=== PATIENT | male | born 2000 | race Caucasian/White ===

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

== ENCOUNTER 2018-04-09 13:29 | Emergency (ER) | payer OTHER ==
[~2018-04-09] VITALS: Wt 135.9 kg
[~2018-04-09 13:29] MED LIST: ACET500C5 PO; AMOX1TAB10 PO; BACTDS PO; IBUP-1542 PO; MUPI22OI2 TOP; NPH10OT LEFT EAR; OFLO5DRO7 LEFT EAR
[2018-04-09 13:38] VITALS: BP 122/70; PULSE 78; RESP 18
[2018-04-09] MEDS ORDERED: IBUPROFEN 600 MG TAB PO ONE (15:00)
--- NOTE | 2018-04-09 15:02 | ERD ---
ER Documentation Chief Complaint Chief Complaint LEFT SHOULDER PAIN X 1 WEEK HPI 17-year-old male presents ED with posterior left shoulder pain times 1 week. Patient denies any fall or injury to account for pain. Patient states that he believes he hurt himself in his sleep. Patient admits to some painful range of motion with shoulder abduction. Denies decreased range of motion, tingling, numbness, lack sensation, fever, chills, shortness of breath, trouble breathing and all other symptoms ROS All systems reviewed and are negative except as per history of present illness. Medications Home Meds Active Scripts Ofloxacin Otic (Ofloxacin Otic) 5 Ml Drops, 5 DROP LEFT EAR BID for 7 Days, #1 BOTTLE Prov:HOLLIE BELLE PA-C 03/25/17 Amoxicillin/Potassium Clav (Amox-Clav 875-125 mg Tablet) 875-125 mg Tab, 1 TAB PO BID for 10 Days, #20 TAB Prov:HOLLIE BELLE PA-C 03/25/17 Acetaminophen* (Tylophen*) 500 Mg Capsule, 1 CAP PO Q6H PRN for PAIN AND OR ELEVATED TEMP, #30 CAP Prov:HOLLIE BELLE PA-C 03/25/17 Ibuprofen* (Motrin*) 600 Mg Tab, 600 MG PO Q6, #30 TAB Prov:HOLLIE BELLE PA-C 03/25/17 Mupirocin* (Bactroban*) 2% -22 Gram Oint...g., 1 APPLIC TOP BID for 7 Days, EA Prov:DENISE BARRIOS 01/14/16 Sulfamethoxazole-Trimethoprim* (Bactrim* DS) 800-160 Mg Tab, 1 TAB PO BID for 7 Days, TAB Prov:DENISE BARRIOS 01/14/16 Neomycin/Polymyxin/Hydrocort* (Cortisporin* Otic) 10 Ml Susp, 4 DROP LEFT EAR QID for 7 Days, EA Prov:VANESSA ORO PA-C 09/02/15 Allergies Allergies: Coded Allergies: No Known Allergy (Unverified , 09/02/15) PMhx/Soc Medical and Surgical Hx: pt denies Medical Hx, pt denies Surgical Hx History of Surgery: No Anesthesia Reaction: No Hx Neurological Disorder: No Hx Respiratory Disorders: No Hx Cardiac Disorders: No Hx Psychiatric Problems: No Hx Miscellaneous Medical Probl: No Hx Alcohol Use: No Hx Substance Use: No Hx Tobacco Use: No Smoking Status: Never smoker FmHx Family History: No diabetes Physical Exam Vitals Vital Signs Date Temp Pulse Resp B/P (MAP) Pulse Ox O2 O2 Flow FiO2 Time Delivery Rate 04/09/18 36.7 14:55 04/09/18 98.1 78 18 122/70 99 13:38 (87) Physical Exam Physical Exam Vitals signs: Reviewed by me. General: Well developed, well nourished, in no acute distress. Patient is awake and alert. Head: Normocephalic, atraumatic. Eyes: Normal conjunctiva, Pupils PERRLA, EOM intact grossly ENT: Pharynx is clear, Moist mucous membranes, external ears, nose and mouth normal Neck: Supple, no masses, lymphadenopathy or JVD Respiratory: Clear to auscultation bilaterally with no wheezing, rhonchi, rales, no distress Cardiovascular: RRR, no murmurs, rubs, or gallops MSK: No edema, no unilateral swelling, 5/5 strength Upper Extremity - left Skin: No laceration, or evidence of external trauma Compartments: Soft Motor: Full active range of motion shoulder/elbow/wrist/hand Sensation: Intact shoulder/pinky/middle finger/thumb web space Bones: Mild tenderness palpation along left posterior shoulder, nontender humerus/elbow/forearm/wrist/hand Snuffbox: Nontender Joints: No effusion Pulses/Perfusion: 2+ radial, Capillary refill < 2 seconds Back: No midline tenderness. No flank tenderness Psych: Normal mood Results 24 hrs Current Medications Medications Dose Sig/Abbey Start Time Status Last (Trade) Ordered Route PRN Stop Time Admin Dose Reason Admin Ibuprofen 600 mg ONCE ONCE 04/09/18 DC 04/09/18 (Motrin) PO 15:00 14:55 04/09/18 15:01 Procedures/MDM EKG, MONITORS, & DIAGNOSTIC IMAGING: X-rays reviewed ER COURSE: The patient was given ibuprofen The medication was well tolerated and the patient reports improvement in symptoms. The patient was stable throughout ED course. I kept the patient and/or family informed of laboratory and diagnostic imaging results throughout the emergency room course. The patient was promptly evaluated and a treatment plan was devised based on H&P and other data. This plan was discussed with the patient who agreed and had no further questions or concerns prior to discharge. MEDICAL DECISION MAKIN-year-old male presents ED with atraumatic left shoulder pain times 1 week. X-rays are unremarkable. Unsure of source of pain but likely could be muscle related. History and physical examination other data not consistent with emergent processes including but not limited to fracture, dislocation, tendon rupture, ischemia, neurovascular injury, compartment syndrome, septic joint, avascular necrosis, osteomyelitis, necrotizing fasciitis, septic joint, septic arthritis, or other emergent conditions. Patient's vitals are stable and can be managed outpatient with close follow-up. Advised patient to follow-up with primary care in the next 48 hours. Return to ED with any worsening symptoms. DISPOSITION PLAN: We discussed follow up with the patient's primary care doctor within 24 to 48 hours. Patient counseled regarding my diagnostic impression and care plan. Prior to discharge all questions answered. Pt agrees with treatment plan and understands strict return precautions. Precautionary instructions provided including instructions to return to the ER if not improving or for any worsening or changing symptoms or concerns. SPECIALIST FOLLOW UP RECOMMENDED: None Patient has been advised to follow up with primary care in 1-2 days. Disclaimer: Inadvertent spelling and grammatical errors are likely due to EHR /dictation software use and do not reflect on the overall quality of patient care. Also, please note that the electronic time recorded on this note does not necessarily reflect the actual time of the patient encounter. Blood Pressure Assessment: Patient's blood pressure was elevated (>120/80) but appears stable without evidence of hypertension emergency or urgency. The patient was counseled about the risks of hypertension and urged to pursue outpatient monitoring and therapy within a week with their primary care physician. Departure Diagnosis: Primary Impression: Shoulder pain Chronicity: acute Laterality: left Qualified Codes: M25.512 - Pain in left shoulder Condition: Stable Patient Instructions: Shoulder Pain (Uncertain Cause) [facility] Additional Instructions: Paciente aconseja volver a Departamento de urgencias inmediatamente para sntomas nuevos o que empeoran . Paciente aconseja posteriores con el PCP en 1-2 [place] . Paciente verbaliza la comprehensin y est de acuerdo con el tratamiento y el curso de accin. Si el paciente no tiene ninguna de atencin primaria pueden seguir con [facility] [address] [place] [address] o [facility] + [address] [address] SOFIE AGUILAR PA-C Apr 09, 2018 15:02
[2018-04-09] MEDS ORDERED: IBUP-1542 PO (15:43)
== END 2018-04-09 16:16 | disposition home or self-care (01) ==
LOC: FTE 13:29
DX: M25.512 Pain in left shoulder (principal)
CPT/HCPCS: 73030; Z7502; Z7610

== ENCOUNTER 2018-09-10 13:30 | Emergency (ER) | payer OTHER ==
[~2018-09-10] VITALS: Wt 120.0 kg
[2018-09-10 13:41] VITALS: BP 123/78; PULSE 78; RESP 18
--- NOTE | 2018-09-10 13:56 | ERD ---
ER Documentation Chief Complaint Chief Complaint LEFT EAR PAIN X 3 DAYS HPI 18-year-old male, presents to the department, complaining of 3 days with worsening of left ear pain after being in the pool. The patient finished 3 weeks ago course of amoxicillin and Ciprodex. Otherwise, the patient denies fever, chills, no headache, no neck stiffness, no rashes. ROS All systems reviewed and are negative except as per history of present illness. Medications Home Meds Active Scripts Ibuprofen* (Motrin*) 400 Mg Tab, 400 MG PO Q8 PRN for PAIN AND OR ELEVATED TEMP, #20 TAB Prov:EDDY HENDERSON MD 09/10/18 Neomycin/Polymyxin/Hydrocort* (Cortisporin* Otic) 10 Ml Susp, 4 DROP BOTH EARS QID for 7 Days, EA Prov:EDDY HENDERSON MD 09/10/18 Ciprofloxacin Hcl* (Ciprofloxacin Hcl*) 250 Mg Tablet, 250 MG PO BID for 7 Days, #14 TAB Prov:EDDY HENDERSON MD 09/10/18 Ibuprofen* (Motrin*) 600 Mg Tab, 600 MG PO Q6, #30 TAB Prov:SOFIE AGUILAR PA-C 04/09/18 Ofloxacin Otic (Ofloxacin Otic) 5 Ml Drops, 5 DROP LEFT EAR BID for 7 Days, #1 BOTTLE Prov:HOLLIE BELLE PA-C 03/25/17 Amoxicillin/Potassium Clav (Amox-Clav 875-125 mg Tablet) 875-125 mg Tab, 1 TAB P O BID for 10 Days, #20 TAB Prov:HOLLIE BELLE PA-C 03/25/17 Acetaminophen* (Tylophen*) 500 Mg Capsule, 1 CAP PO Q6H PRN for PAIN AND OR ELEVATED TEMP, #30 CAP Prov:HOLLIE BELLE PA-C 03/25/17 Ibuprofen* (Motrin*) 600 Mg Tab, 600 MG PO Q6, #30 TAB Prov:HOLLIE BELLE PA-C 03/25/17 Mupirocin* (Bactroban*) 2% -22 Gram Oint...g., 1 APPLIC TOP BID for 7 Days, EA Prov:DENISE BARRIOS 01/14/16 Sulfamethoxazole-Trimethoprim* (Bactrim* DS) 800-160 Mg Tab, 1 TAB PO BID for 7 Days, TAB Prov:DENISE BARRIOS 01/14/16 Neomycin/Polymyxin/Hydrocort* (Cortisporin* Otic) 10 Ml Susp, 4 DROP LEFT EAR QID for 7 Days, EA Prov:VANESSA ORO PA-C 09/02/15 Allergies Allergies: Coded Allergies: No Known Allergy (Unverified , 09/02/15) PMhx/Soc History of Surgery: No Anesthesia Reaction: No Hx Neurological Disorder: No Hx Respiratory Disorders: No Hx Cardiac Disorders: No Hx Psychiatric Problems: Yes Hx Miscellaneous Medical Probl: No Hx Alcohol Use: No Hx Substance Use: No Hx Tobacco Use: No FmHx Family History: No diabetes, No coronary disease Physical Exam Vitals Vital Signs Date Temp Pulse Resp B/P (MAP) Pulse Ox O2 O2 Flow FiO2 Time Delivery Rate 09/10/18 98.0 78 18 123/78 99 13:41 (93) Physical Exam Patient alert, oriented, vital signs stable. HEENT: Normocephalic, atraumatic. EYES: PERRLA, EOMI, Sclera and conjunctiva appear normal. EARS: Left ear with significant tympanic membrane erythema, retraction and opacity with edema of the canal. Contralateral ear normal. THROAT: Erythematous oropharynx. NECK: Supple, No lymphadenopathy. Full ROM without pain or tenderness. HEART: RRR, no rubs, murmurs, clicks or gallops. LUNGS: Clear to auscultation. ABDOMEN: Soft, non-tender without masses or hepatosplenomegaly. EXTREMITIES: No edema bilaterally. BACK: Full ROM, no deformity, normal back exam NEURO: Cranial nerves grossly intact, no motor or sensory deficit Procedures/MDM Vital signs stable, differential diagnosis include but not limited to: infection bacterial/viral/fungal. Tonsillitis, eustachian dysfunction, allergies, foreign body, cholesteatoma. Less likely mastoiditis, malignant otitis, meningitis. Physical examination and clinical presentation consistent most likely with left otitis media. During the ED course the patient remained stable, no new complaints. Clinical impression discussed with the mother who agrees with management. The patient is stable to be treated outpatient and will be discharged home with a Rx for antibiotics and ibuprofen. Some side effects of prescribed medications (headache, rash, nausea, vomiting, diarrhea, interactions with other medications) were reviewed. The patient was instructed to follow up with the primary care provider in the next 48h. If symptoms persist, worsen or new symptoms develop, then patient should return to the ED immediately. Disclaimer: Inadvertent spelling and grammatical errors are likely due to EHR/dictation software use and do not reflect on the overall quality of patient care. Also, please note that the electronic time recorded on this note does not necessarily reflect the actual time of the patient encounter. Departure Diagnosis: Primary Impression: Left otitis media with effusion Condition: Stable Additional Instructions: Muchas anna por [facility] para welch servicio. Esperamos que en welch visita a la saundra de emergencia welch problema medico haya sido solucionado y que se sienta mucho mejor. Para estar seguros que welch mejoria sigue en proceso, le pedimos el favor de hacer albertina yokasta de seguimiento medico con welch doctor primario en los proximos 2-4 king. Lleve con usted estos documentos y las medicinas recetadas. Si saul sintomas empeoran, NO SE ESPERE, por favor regrese a saundra de emergencia INMEDIATAMENTE. En barringtno que usted no tenga un mdico de atencin primaria: Llame al mdico o clnica comunitaria de referencia que aparece abajo eze las horas de consultorio para hacer albertina yokasta para que le vean. CLINICAS: [facility] [phone] [facility] [phone] [facility] [phone] [address] [facility] [phone] [address] [facility] [phone] [address] [facility]. [phone] MD Sep 10, 2018 13:56
[2018-09-10] MEDS ORDERED: CIPR-193 PO (13:57)
[2018-09-10] MEDS ORDERED: NPH10OT BOTH EARS (13:57)
[2018-09-10] MEDS ORDERED: IBUP-1561 PO (13:58)
== END 2018-09-10 13:58 | disposition home or self-care (01) ==
LOC: E/R 13:30
DX: H65.92 Unspecified nonsuppurative otitis media, left ear (principal)
CPT/HCPCS: 99283